=== PATIENT | male | born 1960 | race Caucasian/White ===

== ENCOUNTER 2023-09-20 06:57 | Day surgery (SDC) | payer MEDICAID ==
[~2023-09-20 06:57] MED LIST: Midazolam 1 MG/ML 2 ML SDV ONE; Propofol 200 MG/20 ML SDV ONE; fentaNYL 50 MCG/ML SDV ONE
[2023-09-20] MEDS ORDERED: Sodium Chloride 0.9% 1,000 ML IV SCH (07:30)
[2023-09-20] MEDS ORDERED: Propofol 200 MG/20 ML SDV ONE (07:56)
== END 2023-09-20 09:27 | disposition home or self-care (01) ==
LOC: JP.SDS 06:57
PROVIDERS: ATTEND Surgery
DX: Z12.11 Encounter for screening for malignant neoplasm of colon (principal); K57.30 Diverticulosis of large intestine without perforation or abscess without bleeding; I10 Essential (primary) hypertension
CPT/HCPCS: 45378; J2250; J2704; J3010; J7030